=== PATIENT | male | born 1965 | race Caucasian/White ===

== ENCOUNTER 2018-04-12 01:21 | Emergency (ER) | payer OTHER ==
[~2018-04-12] VITALS: Ht 172.7 cm; Wt 72.6 kg
[2018-04-12] MEDS ORDERED: ZYRTEC10 M5 PO (01:30)
[2018-04-12] MEDS ORDERED: PEPCID20 MG PO (01:31)
[2018-04-12 02:35] VITALS: BP 127/95
== END 2018-04-12 02:35 | disposition home or self-care (01) ==
LOC: M.ERS 01:21
DX: T78.40XA Allergy, unspecified, initial encounter (principal); X58.XXXA Exposure to other specified factors, initial encounter; Z91.013 Allergy to seafood